=== PATIENT | female | born 1990 | race Asian ===

== ENCOUNTER 2019-03-11 08:52 | Emergency (ER) | payer OTHER ==
[2019-03-11] MEDS: ONDANSETRON (ODT) 4 MG TAB ODT (09:19)
== END 2019-03-11 11:50 | disposition home or self-care (01) ==
LOC: FTE 08:52
DX: S09.90XA Unspecified injury of head, initial encounter (principal); R51 Headache; W22.8XXA Striking against or struck by other objects, initial encounter; Y92.9 Unspecified place or not applicable
CPT/HCPCS: 70450; 81025; 99284-25